=== PATIENT | male | born 1965 | race Caucasian/White ===

== ENCOUNTER 2019-02-22 17:58 | Emergency (ER) | payer OTHER, BC ==
[~2019-02-22] VITALS: Ht 182.9 cm; Wt 95.0 kg
[2019-02-22] MEDS ORDERED: ESCITALOPRAM OX20 MG PO (19:28)
[2019-02-22] MEDS ORDERED: RANITIDINE HCL150 MG PO (19:28)
[2019-02-22] MEDS ORDERED: METOPROLOL SUCC50 MG PO (19:29)
[2019-02-22] MEDS ORDERED: ATORVASTATIN CA40 MG PO (19:29)
[2019-02-22 19:30] VITALS: BP 136/80
== END 2019-02-22 19:30 | disposition home or self-care (01) | DRG 605 ==
LOC: ED 17:58
PROC: 2W3FX1Z Immobilization of Left Hand using Splint (ICD-10-PCS; principal; 2019-02-22)
DX: S60.052A Contusion of left little finger without damage to nail, initial encounter (principal); S60.032A Contusion of left middle finger without damage to nail, initial encounter; S60.042A Contusion of left ring finger without damage to nail, initial encounter; Y35.91XA Legal intervention, means unspecified, law enforcement official injured, initial encounter; Y93.89 Activity, other specified; Y92.149 Unspecified place in prison as the place of occurrence of the external cause; Y99.0 Civilian activity done for income or pay